=== PATIENT | male | born 1955 | race Caucasian/White ===

== ENCOUNTER 2023-08-09 16:43 | Emergency (ER) | payer BC ==
[~2023-08-09] VITALS: Ht 180.3 cm; Wt 102.0 kg
[2023-08-09 19:59] VITALS: BP 114/56; PULSE 102; RESP 18; TEMP 98; O2SAT 98
== END 2023-08-09 20:01 ==
LOC: ER 16:44
DX: Z46.6 Encounter for fitting and adjustment of urinary device (principal); I25.10 Atherosclerotic heart disease of native coronary artery without angina pectoris; I25.2 Old myocardial infarction
CPT/HCPCS: 99283